=== PATIENT | female | born 2000 | race Two or more races ===

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

== ENCOUNTER 2022-07-09 22:46 | Emergency (ER) | payer MEDICAID ==
[~2022-07-09] VITALS: Ht 160 cm; Wt 49.0 kg
[2022-07-10 03:34] VITALS: BP 128/80
== END 2022-07-10 03:46 | disposition home or self-care (01) ==
LOC: ER 22:46
DX: S90.122A Contusion of left lesser toe(s) without damage to nail, initial encounter (principal); X58.XXXA Exposure to other specified factors, initial encounter; Y93.89 Activity, other specified; Y92.89 Other specified places as the place of occurrence of the external cause; Y99.8 Other external cause status
CPT/HCPCS: 73630